=== PATIENT | female | born 1940 | race Caucasian/White ===

== ENCOUNTER 2017-12-31 14:23 | Inpatient (IN) | payer MEDICARE, MEDICAID ==
--- NOTE | 2017-12-31 15:05 | ED Physician Chart ---
ED Chief Complaint/HPI - Patient Information Date Seen:: 12/31/17 Time Seen:: 14:40 Chief Complaint:: possible new onset atrial fibrillation History of Present Illness:: Patient went to Dr. Pappas's office this afternoon for peripheral edema and shortness of breath for 2 weeks. Patient's also had substernal chest pain for last 1 month. Patient cannot describe the quality of the chest pain however. In the doctor's office an EKG was done which showed a run of ventricular tachycardia and atrial fibrillation as read by the print out on the EKG. However there is a lot of baseline artifact. Allergies:: Allergies Allergy/AdvReac Type Severity Reaction Status Date / Time No Known Allergies Allergy Verified 12/31/17 14:39 Vitals:: Vital Signs - 8 hr 12/31/17 14:41 Temp 98.1 F HR 72 RR 22 BP 121/46 O2 Sat % 94 Historian:: Patient, Family Member Review:: Nurse's Note Reviewed ED Review of Systems - Review of Systems General/Constitutional: No fever, No chills, No weight loss, No weakness, No diaphoresis, No edema, No loss of appetite Skin: No skin lesions, No rash, No bruising Head: No headache, No light-headedness Eyes: No loss of vision, No pain, No diplopia ENT: No earache, No nasal drainage, No sore throat, No tinnitus Neck: No neck pain, No swelling, No thyromegaly, No stiffness, No mass noted Cardio Vascular: Chest pain, No palpitations, No PND, No orthopnea, No edema Pulmonary: SOB, No cough, No sputum, No wheezing GI: No nausea, No vomiting, No diarrhea, No pain, No melena, No hematochezia, No constipation, No hematemesis G/U: No dysuria, No frequency, No hematuria Musculoskeletal: No bone or joint pain, No back pain, No muscle pain, Other ( peripheral edema) Endocrine: No polyuria, No polydipsia Psychiatric: No prior psych history, No depression, No anxiety, No suicidal ideation Hematopoietic: No bruising, No lymphadenopathy Allergic/Immuno: No urticaria, No angioedema Neurological: No syncope, No focal symptoms, No weakness, No paresthesia, No headache, No seizure, No dizziness, No confusion, No vertigo ED Past Medical History - Past Medical History Past Medical History: HTN, Asthma/COPD, Thyroid disorder, Other (hypothyroidism ; chronic renal disease) Family History: None Social History: Other (quit smoking 30 years ago) Surgical History: Appendectomy, Hernia Psychiatricy History: None Medication: Reviewed Family Medical History - Family Member Mother History Unknown: Yes Ethnicity: Living Status: ED Physical Exam - Physical Examination General/Constitutional: Awake, Well-developed, well-nourished, Alert, No distress, GCS 15, Non-toxic appearing, Ambulatory Head: Atraumatic Eyes: Lids, conjuctiva normal, PERRL, EOMI Skin: Nl inspection, No rash, No skin lesions, No ecchymosis, Well hydrated, No lymphadenopathy ENMT: External ears, nose nl, Nasal exam nl Other ENMT comments:: Edentulous Neck: Nontender, Full ROM w/o pain, No JVD, No nuchal rigidity, No bruit, No mass, No stridor Respiratory: Nl effort/Exclusion, Clear to Auscultation, No Wheeze/Rhonchi/Rales Cardio Vascular: RRR, No murmur, gallop, rubs, NL S1 S2 GI: No tenderness/rebounding/guarding, No organomegaly, No hernia, Normal BS's, Nondistended, No mass/bruits, No McBurney tenderness : No CVA tenderness Extremities: No tenderness or effusion, Full ROM, normal strength in all extremities, Normal digits & nails Other Extremities comments:: 3 out of 4 pretibial pitting edema Neuro/Psych: Alert/oriented, DTR's symmetric, Normal sensory exam, Normal motor strength, Judgement/insight normal, Mood normal, Normal gait, No focal deficits Misc: Normal back, No paraspinal tenderness ED Labs/Radiology/EKG Results - Radiology Results Results: Cardiomegaly; elevation of right hemidiaphragm; calcification of the aortic arch - EKG Interpretations Rate & Rhythm: normal sinus rhythm rate of 69 [place]: normal ED Septic Shock - . Is Septic Shock (SBP<90, OR Lactate>4 mmol\L) present?: No - <6hrs of presentation: Vital Signs: Vital Signs - 8 hr 12/31/17 14:41 Temp 98.1 F HR 72 RR 22 BP 121/46 O2 Sat % 94
[2017-12-31 15:25] LABS: % BASOPHILS 1.2 % (0.0-2.0); % EOSINOPHILS 10.7 % (0.0-5.0); % LYMPHOCYTES 46.1 % (20.0-50.0); % MONOCYTES 9.8 % (2.0-10.0); % NEUTROPHILS 32.2 % (40.0-80.0); BASOPHILE ABSOLUTE 0.1 Th/cumm (0-0.2); EOSINOPHILE ABSOLUTE 0.8 Th/cmm (0.1-0.4); HEMATOCRIT 31.8 % (41.0-60); HEMOGLOBIN 10.5 gm/dL (12-16); LYMPHOCYTE ABSOLUTE 3.4 Th/cmm (1.5-3.0); MEAN CELL VOLUME 87.6 fl (81-100); MEAN CORPUSCULAR HEMOGLOBIN 28.8 pg (27.0-31.0); MEAN CORPUSCULAR HGB CONC 32.9 pg (28.0-36.0); MEAN PLATELET VOLUME 7.9 fl; MONOCYTE ABSOLUTE 0.7 Th/cmm (0.3-1.0); NEUTROPHILE ABSOLUTE 2.4 Th/cmm (1.8-8.0); PLATELET COUNT 168 Th/cmm (150-400); RED BLOOD COUNT 3.63 Mil/cmm (3.80-5.20); RED CELL DISTRIBUTION WIDTH 14.6 % (11.5-20.0); WHITE BLOOD COUNT 7.4 Th/cmm (4.8-10.8)
[2017-12-31 15:41] LABS: ANION GAP 12.1 (7.0-16.0); BUN - UREA NITROGEN 14 mg/dL (7-25); CALCIUM SERUM 9.5 mg/dL (8.6-10.3); CHLORIDE 103 mEq/L (98-107); GLUCOSE 110 mg/dL (70-105); POTASSIUM SERUM 4.1 mEq/L (3.5-5.1); SODIUM SERUM 135 mEq/L (136-145)
[2017-12-31 18:44] LABS: ALB/GLOB RATIO 0.6 (1.0-1.8); ALBUMIN 3.4 gm/dL (3.7-5.3); ALKALINE PHOSPHATASE 86 U/L (34-104); ANION GAP 13.7 (7.0-16.0); BILIRUBIN,TOTAL 0.5 mg/dL (0.3-1.0); BUN - UREA NITROGEN 14 mg/dL (7-25); CALCIUM SERUM 9.3 mg/dL (8.6-10.3); CARBON DIOXIDE 22.4 mEq/L (21.0-31.0); CHLORIDE 103 mEq/L (98-107); GLUCOSE 109 mg/dL (70-105); POTASSIUM SERUM 4.1 mEq/L (3.5-5.1); SGOT 25 U/L (13-39); SGPT/ALT 9 U/L (7-52); SODIUM SERUM 135 mEq/L (136-145); TOTAL PROTEIN,SERUM 9.1 gm/dL (6.0-8.3)
[2017-12-31 19:48] VITALS: BP 131/62
[2018-01-01] MEDS ORDERED: Pneumococcal Vaccine 0.5 mL Vial IM ONE (03:35)
--- NOTE | 2018-01-01 08:43 | Diagnostic Imaging Report ---
CHEST X-RAY: AP view INDICATION: CHF COMPARISON: 02/08/2015 FINDINGS: Exam is limited due to body habitus and rotation. Mild increased interstitial lung markings are noted. There may be a small right effusion. There is elevation of the right hemidiaphragm limiting assessment of the right lung base. There is prominence of the right paratracheal soft tissues. Cardiomegaly is noted with atherosclerosis. Osseous structures are intact. IMPRESSION: Limited exam due to body habitus and positioning. Mild increased interstitial lung markings are noted which could be chronic, however, a marginal degree of congestion cannot be excluded. Please correlate clinically. Right basal atelectasis versus less likely infiltrate. Small right effusion is suspected. Cardiomegaly and atherosclerotic vascular disease. Prominence of the right paratracheal soft tissues. This may be related to body habitus and prominent vascular structures, however, lymphadenopathy or other mass lesions cannot be excluded. Consider short-term follow-up with CT of the chest, preferably with IV contrast.
[2018-01-01] MEDS: Levothyroxine 0.025 Mg Tab PO SCH (09:45)
--- NOTE | 2018-01-01 10:08 | Consultation ---
DATE OF CONSULTATION: 01/01/[address] De Los Santos. HISTORY AND PHYSICAL: This is a 77-year-old female patient who has been complaining of increasing shortness of breath, swelling in both lower extremities at this time. The patient came to the Emergency Room. In the Emergency Room, the patient was found to have elevated BNP level 2630. Hence, the patient was admitted for congestive heart failure. PAST MEDICAL HISTORY: The patient has a history of hypertension, hypothyroid, anemia, iron deficiency, COPD, osteoporosis. FAMILY HISTORY: Unremarkable. SOCIAL HISTORY: No history of smoking, alcohol abuse at the present time. The patient has been a smoker in the past. ALLERGIES: None. PHYSICAL EXAMINATION: VITAL SIGNS: Blood pressure 130/80, pulse 80, respirations 20. HEAD: Normocephalic. No lumps or bumps. EYES: Pupils equal, reactive to light. Fundi show AV nicking, sclerae white, conjunctivae pink. NECK: Carotid 2+. Normal upstroke. JVD 10 cm above the sternal angle. Thyroid not palpable. Lymph nodes not palpable. CHEST: Shows increased AP diameter. No kyphosis, scoliosis. LUNGS: Bilateral rales. Decreased breath sounds both the bases. HEART: PMI sixth intercostal space with lateral to midclavicular line. S1, S2, S3, S4, soft systolic murmur. ABDOMEN: Soft. Liver and spleen not palpable. No organomegaly. Bowel sounds active. NEUROLOGIC: No focal neurological deficit. EXTREMITIES: Peripheral pulses 2+. 2+ pedal edema. CLINICAL IMPRESSION: Congestive heart failure. Echocardiogram to evaluate left ventricular function, hypertension, hypothyroid, iron deficiency anemia, chronic obstructive pulmonary disease, osteoporosis. PLAN: We will start the patient on diuretics, preload afterload reduction. Get troponin level and also echocardiogram. JOB# [id number]
[2018-01-01] MEDS: Acetaminophen 500 MG TAB PO PRN (11:20)
[2018-01-01] MEDS ORDERED: VTE Chemical Prophylaxis Screen/Admission MC PRN (12:46)
[2018-01-02] MEDS: Acetaminophen 500 MG TAB PO PRN (06:51)
[2018-01-02] MEDS: Levothyroxine 0.025 Mg Tab PO SCH (06:51)
[2018-01-02 07:09] LABS: ANION GAP 10.8 (7.0-16.0); BUN - UREA NITROGEN 11 mg/dL (7-25); CARBON DIOXIDE 25.4 mEq/L (21.0-31.0); CHLORIDE 106 mEq/L (98-107); CREATININE - SERUM 0.8 mg/dL (0.6-1.2); GLUCOSE 91 mg/dL (70-105); POTASSIUM SERUM 4.2 mEq/L (3.5-5.1); SODIUM SERUM 138 mEq/L (136-145)
--- NOTE | 2018-01-02 20:09 | Cardiology ---
01/01/[address] De Los Santos. M-MODE ECHOCARDIOGRAM: Mitral valve, anterior leaflet of mitral valve shows normal excursion, EF velocity. Posterior leaflet of the mitral valve shows normal excursion. There is minimal mitral annulus calcification. Left ventricular posterior wall shows increased thickness, normal excursion. Interventricular septum shows increased thickness, normal excursion, hypertrophy of the left ventricle, ejection fraction 76%. Left atrium normal. Aortic root shows normal dimension, normal excursion of aortic leaflets. CONCLUSION: Hypertrophy of the left ventricle, minimal mitral annulus calcification, ejection fraction 76%. 2D ECHO: Long axis view showed normal sized left ventricle with hypertrophy of the left ventricle. Left atrium normal. Aortic root shows normal dimension, normal excursion of aortic leaflets. Short axis view of mitral valve shows minimal mitral annulus calcification. Short axis view of aortic valve normal. Apical four-chamber view showed normal sized left ventricle with hypertrophy of the left ventricle. Left atrium enlarged. Right ventricular cavity, right atrium normal, no pericardial effusion. CONCLUSION: Hypertrophy of the left ventricle, minimal mitral annulus calcification, ejection fraction 76%. Doppler study shows moderate mitral regurgitation, moderate aortic regurgitation, severe tricuspid regurgitation, right ventricular systolic pressure of 57 mmHg with moderate pulmonary hypertension. [facility]# [id number]
[2018-01-03 06:31] LABS: ANION GAP 8.5 (7.0-16.0); BUN - UREA NITROGEN 9 mg/dL (7-25); CARBON DIOXIDE 33.1 mEq/L (21.0-31.0); CHLORIDE 100 mEq/L (98-107); CREATININE - SERUM 0.8 mg/dL (0.6-1.2); GLUCOSE 84 mg/dL (70-105); POTASSIUM SERUM 3.6 mEq/L (3.5-5.1); SODIUM SERUM 138 mEq/L (136-145)
[2018-01-03] MEDS: Levothyroxine 0.025 Mg Tab PO SCH (09:11)
[2018-01-03] MEDS: Acetaminophen 500 MG TAB PO PRN (10:20)
[2018-01-04] MEDS: Levothyroxine 0.025 Mg Tab PO SCH (06:49)
[2018-01-04 06:53] LABS: ANION GAP 10.3 (7.0-16.0); BUN - UREA NITROGEN 9 mg/dL (7-25); CARBON DIOXIDE 37.5 mEq/L (21.0-31.0); CHLORIDE 93 mEq/L (98-107); CREATININE - SERUM 0.9 mg/dL (0.6-1.2); GLUCOSE 112 mg/dL (70-105); POTASSIUM SERUM 3.8 mEq/L (3.5-5.1); SODIUM SERUM 137 mEq/L (136-145)
[2018-01-04] MEDS: Metolazone 5 MG TAB PO SCH (16:35)
[2018-01-05 05:49] LABS: ANION GAP 9.4 (7.0-16.0); BUN - UREA NITROGEN 14 mg/dL (7-25); CALCIUM SERUM 9.4 mg/dL (8.6-10.3); CHLORIDE 89 mEq/L (98-107); CREATININE - SERUM 0.9 mg/dL (0.6-1.2); GLUCOSE 92 mg/dL (70-105); POTASSIUM SERUM 3.5 mEq/L (3.5-5.1); SODIUM SERUM 138 mEq/L (136-145)
[2018-01-05 06:18] LABS: CARBON DIOXIDE 43.1 mEq/L (21.0-31.0)
[2018-01-05] MEDS: Levothyroxine 0.05 Mg Tab PO SCH (09:04)
[2018-01-05] MEDS: Metolazone 5 MG TAB PO SCH ×2 (09:05→18:07)
[2018-01-05] MEDS ORDERED: Potassium Chloride 10 mEq ER Tab PO ONE (13:00)
[2018-01-06 06:03] LABS: HEMATOCRIT 34.3 % (41.0-60); HEMOGLOBIN 11.5 gm/dL (12-16); MEAN CELL VOLUME 86.6 fl (81-100); MEAN CORPUSCULAR HGB CONC 33.4 pg (28.0-36.0); MEAN PLATELET VOLUME 8.6 fl; PLATELET COUNT 149 Th/cmm (150-400); RED BLOOD COUNT 3.96 Mil/cmm (3.80-5.20); WHITE BLOOD COUNT 7.4 Th/cmm (4.8-10.8)
[2018-01-06 06:27] LABS: BUN - UREA NITROGEN 28 mg/dL (7-25); CALCIUM SERUM 9.7 mg/dL (8.6-10.3); CHLORIDE 86 mEq/L (98-107); CREATININE - SERUM 1.1 mg/dL (0.6-1.2); GLUCOSE 86 mg/dL (70-105); POTASSIUM SERUM 3.4 mEq/L (3.5-5.1); SODIUM SERUM 136 mEq/L (136-145)
[2018-01-06 06:38] LABS: BAND NEUTROPHILE 0 % (0-10); BASOPHIL 1 % (0-3); EOSINOPHIL 17 % (0-5); LYMPHOCYTE 39 % (20-50); MONOCYTE 9 % (2-10); NEUTROPHILS 34 % (40-80)
[2018-01-06] MEDS: Levothyroxine 0.05 Mg Tab PO SCH (06:47)
[2018-01-06 07:02] LABS: CARBON DIOXIDE 43.4 mEq/L (21.0-31.0)
[2018-01-06] MEDS: Metolazone 5 MG TAB PO SCH (08:49)
[2018-01-06] MEDS ORDERED: Potassium Chloride 20 mEq ER Tab PO ONE (13:53)
--- NOTE | 2018-01-06 21:04 | Discharge Summary ---
DATE OF DISCHARGE: 01/06/[address] De Los Santos. HISTORY AND PHYSICAL: This 77-year-old female patient who has been complaining of increasing shortness of breath, swelling in both lower extremities. Following this, the patient was seen in the Emergency Room with congestive heart failure, hence the patient is admitted. The patient's BNP level was 2630. PAST MEDICAL HISTORY: Hypertension, hypothyroid, iron-deficiency anemia, COPD, osteoporosis. FAMILY HISTORY: Unremarkable. SOCIAL HISTORY: No history of smoking, alcohol abuse. ALLERGIES: No known allergies. PHYSICAL EXAMINATION: VITAL SIGNS: Blood pressure 130/77, pulse 78, respirations 28. HEAD: Normocephalic. No lumps or bumps. EYES: Pupils equal, reactive to light. Fundi show AV nicking, sclerae white, conjunctivae pink. NECK: Carotid 2+. Normal upstroke. JVD flat. Thyroid not palpable. Lymph nodes not palpable. CHEST: Shows increased AP diameter. No kyphosis, scoliosis. LUNGS: Bilateral bronchovesicular breath sounds. HEART: PMI fifth intercostal space with lateral to midclavicular line. S1, S2. No S3. Soft S4. ABDOMEN: Soft. Liver, spleen not palpable. No organomegaly. Bowel sounds active. NEUROLOGIC: Unremarkable. EXTREMITIES: Peripheral pulses, pedal edema 2+. CLINICAL IMPRESSION: The patient during hospital stay was given Lasix preload, afterload reduction. The patient's condition improved. The patient had echocardiogram, which showed ejection fraction 76%, hypertrophy of the left ventricle, moderate mitral regurgitation, moderate aortic regurgitation, severe tricuspid regurgitation, right ventricular systolic pressure of 57 mmHg with moderate pulmonary hypertension. The patient's condition has been discussed with daughter at the bedside. The patient will be discharged with home health for physical therapy. DISCHARGE DIAGNOSES: Congestive heart failure, diastolic dysfunction, hypertension, hypothyroid, chronic obstructive pulmonary disease, iron-deficiency anemia, osteoporosis. The patient's medication reconciliation done. The patient to have followup visit with Dr. Silvio Pappas. JOB# [id number]
== END 2018-01-06 16:10 | disposition home health service (06) | DRG 291 ==
LOC: ER 14:23 → TELE 16:49
PROVIDERS: ADMIT Internal Medicine Cardiovascular Disease; ATTEND Internal Medicine Cardiovascular Disease
DX: I13.0 Hypertensive heart and chronic kidney disease with heart failure and stage 1 through stage 4 chronic kidney disease, or unspecified chronic kidney disease (principal); I50.31 Acute diastolic (congestive) heart failure; D50.9 Iron deficiency anemia, unspecified; J44.9 Chronic obstructive pulmonary disease, unspecified; E03.9 Hypothyroidism, unspecified; M81.0 Age-related osteoporosis without current pathological fracture; I27.20 Pulmonary hypertension, unspecified; I08.3 Combined rheumatic disorders of mitral, aortic and tricuspid valves; N18.9 Chronic kidney disease, unspecified; Z87.891 Personal history of nicotine dependence; Z90.49 Acquired absence of other specified parts of digestive tract
CPT/HCPCS: 36415-UA; 71045-TC; 80048-TC; 80053-TC; 83880-TC; 84484-TC; 85007-TC; 85025-TC; 93005; 94760; J1644; J1940; Z7610

== ENCOUNTER 2018-02-19 15:33 | Inpatient (IN) | payer MEDICARE, MEDICAID ==
--- NOTE | 2018-02-19 16:24 | ED Physician Chart ---
ED Chief Complaint/HPI - Patient Information Date Seen:: 02/19/18 Time Seen:: 16:00 Chief Complaint:: abd pain History of Present Illness:: 77 yr old female with nv abd pain since yest hx of multiple abd surgeries and appendectomy hx of hernia surgery no diarhea or major vomiting Allergies:: Allergies Allergy/AdvReac Type Severity Reaction Status Date / Time No Known Allergies Allergy Verified 12/31/17 14:39 Vitals:: Vital Signs - 8 hr 02/19/18 16:03 Temp 98.5 F HR 89 RR 22 BP 182/65 O2 Sat % 94 ED Review of Systems - Review of Systems General/Constitutional: No fever Skin: No skin lesions Head: No headache Eyes: No loss of vision ENT: No earache Neck: No neck pain Cardio Vascular: No chest pain Pulmonary: No SOB GI: No vomiting G/U: No dysuria Musculoskeletal: No bone or joint pain Endocrine: No polyuria Psychiatric: No anxiety Hematopoietic: No bruising Allergic/Immuno: No urticaria Neurological: No syncope ED Past Medical History - Past Medical History Past Medical History: HTN, CHF Surgical History: Appendectomy (hernia surgery) Family Medical History - Family Member Mother History Unknown: Yes Ethnicity: Living Status: ED Physical Exam - Physical Examination General/Constitutional: Well-developed, well-nourished, Alert Head: Atraumatic Eyes: Lids, conjuctiva normal Skin: No rash ENMT: External ears, nose nl Neck: Nontender (occas rales and dyspnea) Respiratory: Nl effort/Exclusion Cardio Vascular: RRR, No murmur, gallop, rubs GI: No organomegaly Other GI comments:: mild distension : No CVA tenderness Extremities: No tenderness or effusion Neuro/Psych: Alert/oriented ED Septic Shock - . Is Septic Shock (SBP<90, OR Lactate>4 mmol\L) present?: No - <6hrs of presentation: Vital Signs: Vital Signs - 8 hr 02/19/18 16:03 Temp 98.5 F HR 89 RR 22 BP 182/65 O2 Sat % 94 ED Reassessment (Disposition) - Diagnosis Diagnosis:: abd pain nv - Patient Disposition Discharge/Transfer:: Acute Care w/in this hosp Condition at Disposition:: Stable
[2018-02-19 16:47] LABS: % BASOPHILS 0.6 % (0.0-2.0); % LYMPHOCYTES 26.4 % (20.0-50.0); % MONOCYTES 8.1 % (2.0-10.0); % NEUTROPHILS 54.9 % (40.0-80.0); EOSINOPHILE ABSOLUTE 0.6 Th/cmm (0.1-0.4); HEMATOCRIT 34.1 % (41.0-60); HEMOGLOBIN 11.4 gm/dL (12-16); LYMPHOCYTE ABSOLUTE 1.6 Th/cmm (1.5-3.0); MEAN CELL VOLUME 86.3 fl (81-100); MEAN CORPUSCULAR HEMOGLOBIN 28.8 pg (27.0-31.0); MEAN CORPUSCULAR HGB CONC 33.3 pg (28.0-36.0); MEAN PLATELET VOLUME 7.8 fl; MONOCYTE ABSOLUTE 0.5 Th/cmm (0.3-1.0); NEUTROPHILE ABSOLUTE 3.3 Th/cmm (1.8-8.0); PLATELET COUNT 176 Th/cmm (150-400); RED BLOOD COUNT 3.95 Mil/cmm (3.80-5.20); RED CELL DISTRIBUTION WIDTH 15.7 % (11.5-20.0)
[2018-02-19 17:02] LABS: ALB/GLOB RATIO 0.6 (1.0-1.8); ALBUMIN 3.2 gm/dL (3.7-5.3); ALKALINE PHOSPHATASE 126 U/L (34-104); ANION GAP 10.4 (7.0-16.0); BILIRUBIN,TOTAL 0.5 mg/dL (0.3-1.0); BUN - UREA NITROGEN 11 mg/dL (7-25); CALCIUM SERUM 9.3 mg/dL (8.6-10.3); CARBON DIOXIDE 25.9 mEq/L (21.0-31.0); CHLORIDE 103 mEq/L (98-107); CREATININE - SERUM 0.7 mg/dL (0.6-1.2); GLUCOSE 114 mg/dL (70-105); POTASSIUM SERUM 3.3 mEq/L (3.5-5.1); SGOT 29 U/L (13-39); SGPT/ALT 12 U/L (7-52); SODIUM SERUM 136 mEq/L (136-145); TOTAL PROTEIN,SERUM 8.8 gm/dL (6.0-8.3)
[2018-02-19 17:23] LABS: URINE SOURCE CLEAN C
[2018-02-19] MEDS ORDERED: Potassium Chloride 20 mEq ER Tab PO ONE ×2 (17:29→17:43)
[2018-02-19 17:34] LABS: URINE BILIRUBIN NEGATIVE (NEGATIVE); URINE BLOOD SMALL (NEGATIVE); URINE GLUCOSE (UA) NEGATIVE (NEGATIVE); URINE KETONE NEGATIVE (NEGATIVE); URINE LEUKOCYTE ESTERASE NEGATIVE (NEGATIVE); URINE MICROSCOPIC INDICATED? YES; URINE NITRATE NEGATIVE (NEGATIVE); URINE PH 6.5 (4.6 - 8.0); URINE PROTEIN 100 mg/dL (NEGATIVE); URINE UROBILINOGEN 0.2 E.U./dL (0.2 - 1.0)
[2018-02-19 17:39] LABS: URINE CLARITY CLEAR (CLEAR); URINE COLOR YELLOW
[2018-02-19 17:44] LABS: URINE BACTERIA 1+ /hpf (NONE SEEN); URINE EPITHELIAL CELLS FEW /lpf (FEW); URINE WBC 0-2 /hpf (0-5)
[2018-02-19] MEDS ORDERED: Morphine Sulfate 2 mg/mL 1mL Syr IVP STA (19:25)
[2018-02-19] MEDS ORDERED: Piperacillin Sodium/Tazobact 3.375 gm Vial IV ONE (19:35)
[2018-02-19] MEDS ORDERED: Morphine Sulfate 2 mg/mL 1mL Syr ONE (19:35)
[2018-02-19 20:49] LABS: AMYLASE SERUM 675 U/L (29-103); LIPASE 2214 U/L (11-82)
[2018-02-19] MEDS ORDERED: Lactated Ringer 1,000 ML IV ONE (21:04)
[2018-02-19] MEDS ORDERED: D5-0.9NS w/KCL 20mEq 1,000 ML IV ONE ×2 (21:09→21:45)
[2018-02-19] MEDS ORDERED: Morphine Sulfate 2 mg/mL 1mL Syr IV PRN (22:14)
[2018-02-19] MEDS ORDERED: D5-0.45NS 1,000 ML IV SCH (22:45)
[2018-02-20 00:19] VITALS: BP 168/69
[2018-02-20] MEDS ORDERED: Piperacillin Sodium/Tazobact 3.375 gm Vial IV ONE (05:15)
[2018-02-20 06:11] LABS: % BASOPHILS 0.5 % (0.0-2.0); % EOSINOPHILS 3.9 % (0.0-5.0); % NEUTROPHILS 59.6 % (40.0-80.0); EOSINOPHILE ABSOLUTE 0.3 Th/cmm (0.1-0.4); HEMATOCRIT 31.6 % (41.0-60); HEMOGLOBIN 10.4 gm/dL (12-16); LYMPHOCYTE ABSOLUTE 2.1 Th/cmm (1.5-3.0); MEAN CELL VOLUME 86.9 fl (81-100); MEAN CORPUSCULAR HEMOGLOBIN 28.5 pg (27.0-31.0); MEAN CORPUSCULAR HGB CONC 32.9 pg (28.0-36.0); MEAN PLATELET VOLUME 8.8 fl; MONOCYTE ABSOLUTE 0.7 Th/cmm (0.3-1.0); NEUTROPHILE ABSOLUTE 4.5 Th/cmm (1.8-8.0); PLATELET COUNT 168 Th/cmm (150-400); RED BLOOD COUNT 3.64 Mil/cmm (3.80-5.20); RED CELL DISTRIBUTION WIDTH 15.9 % (11.5-20.0)
[2018-02-20 06:12] LABS: ALB/GLOB RATIO 0.6 (1.0-1.8); ALBUMIN 2.8 gm/dL (3.7-5.3); ALKALINE PHOSPHATASE 97 U/L (34-104); ANION GAP 10.5 (7.0-16.0); BILIRUBIN,TOTAL 0.6 mg/dL (0.3-1.0); BUN - UREA NITROGEN 13 mg/dL (7-25); CALCIUM SERUM 8.8 mg/dL (8.6-10.3); CARBON DIOXIDE 23.7 mEq/L (21.0-31.0); CHLORIDE 108 mEq/L (98-107); CREATININE - SERUM 0.9 mg/dL (0.6-1.2); GLUCOSE 109 mg/dL (70-105); LIPASE 171 U/L (11-82); POTASSIUM SERUM 4.2 mEq/L (3.5-5.1); SGOT 29 U/L (13-39); SGPT/ALT 12 U/L (7-52); SODIUM SERUM 138 mEq/L (136-145); TOTAL PROTEIN,SERUM 7.7 gm/dL (6.0-8.3)
[2018-02-20 06:13] LABS: WHITE BLOOD COUNT 7.6 Th/cmm (4.8-10.8)
[2018-02-20 07:01] LABS: INR 1.33 (0.5-1.4); PROTHROMBIN TIME (TEST) 13.6 SECONDS (9.5-11.5)
[2018-02-20] MEDS ORDERED: D5-0.25NS 1,000 ML IV SCH (08:30)
--- NOTE | 2018-02-20 09:23 | Consultation ---
DATE OF CONSULTATION: 02/20/2018 INPATIENT GASTROINTESTINAL CONSULTATION CONSULTING PHYSICIAN: Dr. Mejia. REASON FOR CONSULTATION: Suspected cholecystitis and pancreatitis. HISTORY OF PRESENT ILLNESS: The patient is a 77-year-old female with past medical history significant for obesity, hyperlipidemia, history of multiple abdominal surgeries for hernia repair, who came into the hospital because of acute onset abdominal pain, nausea and vomiting. The patient reports that her abdominal pain is in the epigastric region and began yesterday. She also had several episodes of vomiting at home, although she denies any hematemesis or coffee-ground emesis and she denies any hematochezia as well. Given the severity of her pain, she has had to seek care in the Emergency Room. A CT scan there does show preliminarily possible pancreatitis, distended gallbladder, possible cirrhosis and a thickened gallbladder wall on ultrasound. Labs there showed lipase level elevated above 2000, although her LFTs have been normal. Thus, the patient has been admitted for further care of presumed pancreatitis and possible cholecystitis. PAST MEDICAL HISTORY: History of appendicitis, hernia repair, hyperlipidemia, obesity. PAST SURGICAL HISTORY: Hernia repairs in the past, appendectomy, multiple abdominal surgeries, as per the patient, although she cannot remember which. FAMILY HISTORY: Noncontributory. SOCIAL HISTORY: The patient does not smoke, drink or use illicit drugs. ALLERGIES: No known drug allergies. REVIEW OF SYSTEMS: A 12-point review of systems was performed with the patient and is negative other than the pertinent positives mentioned in history of present illness. CURRENT MEDICATIONS: Include hydralazine, morphine as needed, Zofran as needed, Protonix daily dosing, Zosyn. PHYSICAL EXAMINATION: VITAL SIGNS: Blood pressure is 104/64, pulse 71 beats per minute, temperature 98.3, oxygenation 93%. GENERAL: The patient is lying flat in bed, alert and oriented x 3, no apparent distress. HEAD, EYES, EARS, NOSE AND THROAT: Normocephalic, atraumatic appearing head. Pupils equal and reactive to light. Extraocular muscles are intact. Dry mucous membranes are noted. NECK: Supple. No JVD or thyromegaly. CHEST: There are reduced breath sounds at the bases. CARDIOVASCULAR: S1, S2 present. Regular rate and rhythm. ABDOMEN: Obese, soft. There is minimal tenderness to palpation at this time. No guarding or rebound. No fluid distention. EXTREMITIES: Nonpitting edema is noted bilaterally. Pulses are not present. SKIN: There is no obvious jaundice. LABORATORY DATA: White blood cell count is 6.0, hemoglobin is 10.4, platelet count 168. INR is 1.3. Sodium 138, BUN 13, creatinine 0.9, total bilirubin 0.6, AST 29, ALT 12. Lipase on admission was 2214, today it is 171. IMAGING: Preliminary CT shows possible cirrhosis, distended gallbladder, pancreatitis changes. Ultrasound shows a thickened gallbladder wall. IMPRESSION: This is a 77-year-old female who presents to the hospital with one day of abdominal pain, nausea and vomiting and found to have elevated lipase and possible pancreatitis versus cholecystitis on CT imaging. 1. Abdominal pain. 2. Nausea, vomiting. 3. Possible pancreatitis versus cholecystitis. 4. Possible cirrhosis. DISCUSSION: At this point, the patient will meet criteria for acute pancreatitis given her elevated lipase level, classic pain syndrome and imaging findings with pancreatic edema; however, we will need to await the final read of the CT scan. The preliminary read was not certain. In the meantime, she does feel better with conservative therapy including IV fluids, although she has been under having 75 mL an hour. A HIDA scan has been ordered to look for any evidence of cystic duct obstruction given the thickened gallbladder wall on this CT scan and ultrasound. RECOMMENDATIONS: 1. We will increase the IV fluids to 125 mL an hour to treat the pancreatitis. 2. She can be put on clear liquids after the HIDA scan. 3. Follow up HIDA scan results to see if there is any cystic duct obstruction, which may be causing cholecystitis. 4. She may benefit from having her gallbladder removed, especially if this is a gallstone pancreatitis, which seems rather likely at this point. 5. Continue other supportive measures. 6. We will follow up the final read of the CT and ultrasound. Thank you for allowing me to participate in her care. Please call with any further questions. JOB# [id number]
--- NOTE | 2018-02-20 09:28 | Diagnostic Imaging Report ---
Exam: CT examination abdomen pelvis. HISTORY: Right upper quadrant pain vomiting. Total DLP equals 520 CTDI equals 11.480 Findings: Multiple views of the section of the abdomen pelvis obtained from lower thorax to pubic symphysis without the administration of the intravenous or oral contrast material. No prior studies available comparison. The study demonstrates normal aeration of lung parenchyma the bases. There is evidence for left dilated appearance of the liver is cirrhotic changes cannot be excluded. There is evidence of splenomegaly. The gallbladder is distended. The visualized pancreas demonstrates induration pancreatitis cannot be excluded. The kidneys demonstrate no evidence of obstructive uropathy or nephrolithiasis. No free fluid is noted. Large amount of fecal content is noted in the rectosigmoid junction and rectum suggestive of fecal impaction. Urinary bladder is intact. The uterus calcified. There is evidence of diverticular disease no evidence of IMPRESSION: Hepatosplenomegaly, irregular the lobulated appearance of liver, cirrhotic changes cannot be excluded. Gallbladder distention with thickening gallbladder wall cholecystitis cannot be excluded. Inhomogeneous edema pancreas, question of pancreatitis. Diverticular disease no evidence for diverticulitis. Fecal impaction rectosigmoid junction rectum.
--- NOTE | 2018-02-20 09:31 | Diagnostic Imaging Report ---
ABDOMEN - TWO VIEWS HISTORY: Abdominal pain. Findings: The gas pattern is unremarkable. No organomegaly is noted. No abnormal intra-abdominal calcifications are demonstrated. The visualized bony structures reveal no significant abnormality. Large amount of fecal content is noted. CONCLUSION: 1. Large amount of fecal content.
--- NOTE | 2018-02-20 09:32 | Diagnostic Imaging Report ---
Chest x-ray single view History: Shortness of breath Comparison: 12/31/2017 The heart size is enlarged, no focal pulmonary parenchymal processes. No hilar or mediastinal abnormalities. Impression: No acute abnormalities
--- NOTE | 2018-02-20 10:37 | Diagnostic Imaging Report ---
Exam: Ultrasonographic examination of the gallbladder HISTORY: Distended gallbladder Findings: Limited examination of gallbladder performed multiple planes utilizing real-time technique demonstrates no evidence of cholelithiasis. The gallbladder wall is normal. The common bile duct measures 2.4 mm. There is no evidence of pericholecystic fluid collection IMPRESSION: Distended gallbladder no evidence for cholelithiasis.
--- NOTE | 2018-02-20 12:52 | General Progress Note ---
Objective - Results Result Diagrams: 02/20/18 05:10 02/20/18 05:10 Recent Labs: Laboratory Last Values WBC 7.6 Th/cmm (4.8-10.8) D 02/20/18 05:10 RBC 3.64 Mil/cmm (3.80-5.20) L 02/20/18 05:10 Hgb 10.4 gm/dL (12-16) L 02/20/18 05:10 Hct 31.6 % (41.0-60) L 02/20/18 05:10 MCV 86.9 fl (81-100) 02/20/18 05:10 MCH 28.5 pg (27.0-31.0) 02/20/18 05:10 MCHC Differential 32.9 pg (28.0-36.0) 02/20/18 05:10 RDW 15.9 % (11.5-20.0) 02/20/18 05:10 Plt Count 168 Th/cmm (150-400) 02/20/18 05:10 MPV 8.8 fl 02/20/18 05:10 Neutrophils % 59.6 % (40.0-80.0) 02/20/18 05:10 Lymphocytes % 27.0 % (20.0-50.0) 02/20/18 05:10 Monocytes % 9.0 % (2.0-10.0) 02/20/18 05:10 Eosinophils % 3.9 % (0.0-5.0) 02/20/18 05:10 Basophils % 0.5 % (0.0-2.0) 02/20/18 05:10 PT 13.6 SECONDS (9.5-11.5) H 02/20/18 05:10 INR 1.33 (0.5-1.4) 02/20/18 05:10 Sodium 138 mEq/L (136-145) 02/20/18 05:10 Potassium 4.2 mEq/L (3.5-5.1) 02/20/18 05:10 Chloride 108 mEq/L (98-107) H 02/20/18 05:10 Carbon Dioxide 23.7 mEq/L (21.0-31.0) 02/20/18 05:10 Anion Gap 10.5 (7.0-16.0) 02/20/18 05:10 BUN 13 mg/dL (7-25) 02/20/18 05:10 Creatinine 0.9 mg/dL (0.6-1.2) 02/20/18 05:10 Est GFR ( Amer) TNP 02/20/18 05:10 Est GFR (Non-Af Amer) TNP 02/20/18 05:10 BUN/Creatinine Ratio 14.4 02/20/18 05:10 Glucose 109 mg/dL (70-105) H 02/20/18 05:10 Calcium 8.8 mg/dL (8.6-10.3) 02/20/18 05:10 Magnesium 2.0 mg/dL (1.9-2.7) 02/20/18 05:10 Total Bilirubin 0.6 mg/dL (0.3-1.0) 02/20/18 05:10 AST 29 U/L (13-39) 02/20/18 05:10 ALT 12 U/L (7-52) 02/20/18 05:10 Alkaline Phosphatase 97 U/L (34-104) 02/20/18 05:10 Total Protein 7.7 gm/dL (6.0-8.3) 02/20/18 05:10 Albumin 2.8 gm/dL (3.7-5.3) L 02/20/18 05:10 Globulin 4.9 gm/dL 02/20/18 05:10 Albumin/Globulin Ratio 0.6 (1.0-1.8) L 02/20/18 05:10 Amylase 675 U/L (29-103) H 02/19/18 16:41 Lipase 171 U/L (11-82) H 02/20/18 05:10 Urine Source CLEAN C 02/19/18 16:08 Urine Color YELLOW 02/19/18 16:08 Urine Clarity CLEAR (CLEAR) 02/19/18 16:08 Urine pH 6.5 (4.6 - 8.0) 02/19/18 16:08 Ur Specific [place] 1.020 (1.005-1.030) 02/19/18 16:08 Urine Protein 100 mg/dL (NEGATIVE) H 02/19/18 16:08 Urine Glucose (UA) NEGATIVE mg/dL (NEGATIVE) 02/19/18 16:08 Urine Ketones NEGATIVE mg/dL (NEGATIVE) 02/19/18 16:08 Urine Blood SMALL (NEGATIVE) H 02/19/18 16:08 Urine Nitrate NEGATIVE (NEGATIVE) 02/19/18 16:08 Urine Bilirubin NEGATIVE (NEGATIVE) 02/19/18 16:08 Urine Urobilinogen 0.2 E.U./dL (0.2 - 1.0) 02/19/18 16:08 Ur Leukocyte Esterase NEGATIVE (NEGATIVE) 02/19/18 16:08 Urine RBC 2-5 /hpf (0-5) 02/19/18 16:08 Urine WBC 0-2 /hpf (0-5) 02/19/18 16:08 Ur Epithelial Cells FEW /lpf (FEW) 02/19/18 16:08 Urine Bacteria 1+ /hpf (NONE SEEN) H 02/19/18 16:08 - Physical Exam Vitals and I&O: Vital Signs Temp 97.8 F 02/20/18 09:00 Pulse 72 02/20/18 09:00 Resp 18 02/20/18 09:00 BP 100/55 02/20/18 09:00 Pulse Ox 94 02/20/18 09:00 Intake & Output 02/19/18 02/20/18 02/20/18 18:59 06:59 18:59 Intake Total 50 Balance 50 Weight (lbs) 73.028 kg 70.874 kg Intake: Intake, IV Amount 50 Piperacillin Sodium/ 50 Tazobact 3.375 gm In Sodium Chloride 0.9% 50 ml @ 100 mls/hr IV Q8HR [facility] Rx#:[id number] Other: # Voids 2 # Bowel Movements 0 Weight Source Patient stated Bedscale Active Medications: Current Medications Hydralazine HCl (Apresoline 20 Mg/Ml) 20 mg IV Q4HR PRN PRN Reason: IN SBP >160 Stop: 04/20/18 22:17 Last Admin: 02/19/18 23:42 Dose: 20 mg Piperacillin Sod/Tazobactam (Sod 3.375 gm/ Sodium Chloride) 50 mls @ 100 mls/ hr IV Q8HR [facility] Stop: 04/21/18 04:59 Last Admin: 02/20/18 05:27 Dose: 100 mls/hr Dextrose/Sodium Chloride (D5-0.45ns) 1,000 mls @ 125 mls/hr IV .Q8H [facility] Stop: 04/21/18 08:56 Metronidazole (Flagyl) 500 mg in 100 mls @ 100 mls/hr IV Q8HR [facility] Stop: 04/21/18 12:59 Morphine Sulfate (Morphine) 1 mg IV NOW PRN PRN Reason: Pain (Moderate) Stop: 04/20/18 22:13 Ondansetron HCl (Zofran) 4 mg IV Q4HR PRN PRN Reason: Nausea / Vomiting Stop: 04/20/18 22:11 Pantoprazole Sodium (Protonix) 40 mg IVP DAILY [facility] Stop: 04/21/18 08:59 Last Admin: 02/20/18 08:38 Dose: 40 mg - Procedures Procedures: Procedures Procedure Code Date APPLICATION OF SPLINT 93.54 12/21/10 APPLY LONG ARM SPLINT 61875 12/21/10 DIPHTHERIA TOXOID ADMIN 99.36 12/21/10 EMERGENCY DEPT VISIT 31691 07/22/11 IMMUNIZATION ADMIN 69666 12/21/10 LAP COLECTOMY PART W/ILEUM 72219 02/22/13 LAP VENT/ABD SOPHIE PROC COMP 96414 02/22/13 LAPAROSCOP APPENDECTOMY 47.01 02/22/13 LAPAROSCOPIC CECECTOMY 17.32 02/22/13 LAPAROSCOPY APPENDECTOMY 18659 02/22/13 OTHER LAPAROSCOPIC UMBILICAL HERNIORRHAPHY 53.43 02/22/13 TD VACCINE > 7 IM 01149 12/21/10 TETANUS TOXOID ADMINIST 99.38 12/21/10 Assessment/Plan - Problem List Patient Problems: All Active Problems NAUSEA AND VOMITING WITH ABDOMINAL PAIN (Acute)
[2018-02-20 13:07] LABS: CHOLESTEROL 113 mg/dL (<200); HDL -HIGH DENSITY LIPOPROTEIN 35 mg/dL (23-92); LIPASE 60 U/L (11-82); TRIGLYCERIDES 71 mg/dL (<150)
[2018-02-20] MEDS: metroNIDAZOLE 500mg/NS 100mL 500 MG/100 ML BAG IV SCH ×2 (13:46→21:32)
--- NOTE | 2018-02-20 14:07 | Consultation ---
DATE OF CONSULTATION: 02/20/2018 SURGICAL CONSULTATION REFERRING PHYSICIAN: Dr. Mejia. REASON FOR CONSULTATION: Abdominal pain. Thank you for referring this patient to me. HISTORY OF PRESENT ILLNESS: This is a 77-year-old female who per information from the granddaughter at bedside has been having recurrent abdominal pain in the epigastric area for several years. The patient apparently does not drink. She came in because of severe pain, nausea and vomiting and a CT scan shows hepatomegaly, pancreatitis and a distended gallbladder. The gallbladder ultrasound; however, does not show any stones. PAST MEDICAL HISTORY: Includes appendicitis, a hernia repair in the umbilicus, hyperlipidemia and obesity. She is not a diabetic. LABORATORY STUDIES: On admission, the CBC was essentially normal. The blood sugar is slightly high at 114, alkaline phosphatase 126, but ALT, AST and bilirubin were normal. The amylase was elevated to 675 and lipase at 2214. PHYSICAL EXAMINATION: Now shows scar from previous surgery and there is slight tenderness in the right upper quadrant. PLAN: Per order by Dr. Quinten SALGUERO scan will be done. We will also order a lipid panel to check on level of triglycerides, etc. JOB# [id number]
[2018-02-20] MEDS: D5-0.45NS 1,000 ML IV SCH ×2 (15:47→16:38)
--- NOTE | 2018-02-20 18:13 | History & Physical Pre-OP ---
DATE OF SERVICE: CHIEF COMPLAINT: Abdominal pain. HISTORY OF PRESENT ILLNESS: This is a 77-year-old lady with a history of hyperlipidemia, atrial fibrillation, obesity, who presented to the ER with a 1-day history of abdominal pain and multiple episodes of nausea and vomiting. She denies any hematemesis, diarrhea or constipation. She denies any similar previous episodes in the past. Pertinent findings include a lipase level of over 2000 and initially a pelvic abdominal CT, which showed hepatomegaly and distention of the gallbladder with thickening wall. She also had gallbladder ultrasound showing distended gallbladder with no evidence of cholelithiasis. The patient has been admitted to the telemetry sky for further management and care. PAST MEDICAL HISTORY: History of hypertension, atrial fibrillation, hypothyroidism, asthma/COPD. PAST SURGICAL HISTORY: History of appendectomy, hernia repairs. FAMILY HISTORY: Noncontributory. SOCIAL HISTORY: Denies any tobacco, ETOH or illicit drug usage. ALLERGIES: NKDA. OUTPATIENT MEDICATIONS: Albuterol MDI 90 mcg p.r.n.; amlodipine 5 every day; Eliquis 5 mg every day; ergocalciferol 50,000 units q.weekly; levothyroxine 50 mcg daily; loratadine 10 every day; metoprolol 50 b.i.d.; and nitrofurantoin 100 b.i.d. REVIEW OF SYSTEMS: CONSTITUTIONAL: Feeling somewhat weak at this time, but overall denies any fever, chills or any generalized weakness prior to her becoming ill. CARDIAC: She denies any palpitations, any chest pain. PULMONARY: Denies any cough, shortness of breath or phlegm production. GASTROINTESTINAL: Please refer to the HPI. GENITOURINARY: No bladder habit changes reported. NEUROLOGIC: No changes in vision, no headaches, no syncope. PHYSICAL EXAMINATION: VITAL SIGNS: Temperature 97.8, pulse 72, blood pressure 109/55 with respiratory rate of 18, satting 94-97% on 2 liters. GENERAL: Well-developed, mildly obese female, not in acute distress. HEAD AND NECK: Normocephalic, atraumatic. Pupils are reactive to light. Extraocular movements are intact. Oropharynx moist and clear. CARDIOVASCULAR: Irregularly irregular rhythm with distant sounds. LUNGS: Diminished at the bases, but overall clear to auscultation bilaterally. ABDOMEN: Soft, supple with mild tenderness to palpation on the epigastric area, but no rebound or peritoneal signs. Currently, has hypoactive bowel sounds. EXTREMITIES: On lower extremity, there is no pedal edema. NEUROLOGIC: Grossly intact, nonfocal. Cranial nerves 2-12 within normal limits. LABORATORY DATA: CBC showed an H and H of 11/34, otherwise within normal limits. INR 1.33, potassium 3.3, glucose 114, otherwise Chem-7 was within normal limits. Mag 2.0, AST 29, ALT 12, alkaline phosphatase 126, albumin 3.2, amylase 675, lipase 2214. UA shows positive for protein, small blood, otherwise negative. DIAGNOSTICS: Please refer to the HPI. IMPRESSION: 1. Abdominal pain secondary to pancreatitis. 2. Pancreatitis likely secondary to cholecystitis. 3. Cholecystitis with no clear evidence of gallstones. 4. History of atrial fibrillation. 5. History of essential hypertension. 6. History of asthma/chronic obstructive pulmonary disease -- stable. PLAN: The patient has been admitted to the telemetry sky where she has been placed on IV fluids and supportive care including morphine as needed. She also is on Zofran p.r.n. for the time being. Her home meds have been withheld for now. The patient has been placed on empiric IV antibiotics (Zosyn) and she will undergo a HIDA scan. Her labs will be monitored on a daily basis including lipase level and given her current findings, a GI eval has also been asked for. JOB# [id number] ROMAN
[2018-02-20] MEDS ORDERED: Albuterol Nebulizer 2.5mg/3mL HHN PRN (23:12)
--- NOTE | 2018-02-20 23:54 | Consultation ---
DATE OF CONSULTATION: 02/20/2018 HISTORY OF PRESENT ILLNESS: This 77-year-old female was seen and examined at the courtesy of Dr. Mejia. The patient was admitted to the Emergency Room. She was brought to the Emergency Room with history of abdominal pain. The patient also has a history of paroxysmal atrial fibrillation, has been on Eliquis as an outpatient and metoprolol. She was evaluated in the Emergency Room and was found to have acute pancreatitis with elevated lipase and amylase and distended gallbladder. A CAT scan showing liver consistent with cirrhosis of liver. The patient also found to have anemia and hypokalemia. The patient denies any history of chest pains. No shortness of breath, no history of PND, no history of orthopnea, no history of cough, no history of fever, no history of hemoptysis, no history of dizziness, no history of syncope, no history of seizures, no history of hematemesis, no history of melena, no history of bleeding per rectum, no history of hematuria, no history of swelling over the legs. PHYSICAL EXAMINATION: VITAL SIGNS: Heart rate was 76, blood pressure was 150/70. SKIN: Normal. HEAD: Normocephalic. EYES: Conjunctivae were pink. There is no icterus in the eyes. Pupils reactive to light. NECK: There was no increased jugular venous distention, no thyromegaly, no lymphadenopathy. Carotids equal on both sides. CHEST: Bilaterally symmetrical, moved well with respiration. Respiratory movements equal on both sides. Trachea is central. There is note to percussion. Breath sounds, no rales, no rhonchi. CARDIOVASCULAR SYSTEM: PMI not well localized. There is no pulsation or thrill. No parasternal heave. S1 normal, S2 physiologic. There was no S3, no rub. ABDOMEN: Soft, no tenderness, no rigidity, no guarding, no organomegaly. Abdomen seems to distended. Bowel sounds are present. EXTREMITIES: No calf tenderness. Peripheral pulses diminished. LABORATORY DATA: EKG showed sinus rhythm. CAT scan showed hepatosplenomegaly, irregular lobulated appearance of the liver, cirrhotic changes cannot be excluded. On reviewing the labs, cholesterol was 113, triglycerides 71, HDL 35, LDL 67. WBC was 7.6, hemoglobin 10.4, hematocrit 31.6, platelets 168. Sodium 138, potassium 4.2, chloride 108, CO2 of 23.7, glucose 109, BUN 13, creatinine 0.9, albumin 2.8, magnesium 2. Liver function test was normal. INR was 1.33. Yesterday's electrolytes revealed potassium of 3.3, lipase was 2214, amylase was 675. Abdominal ultrasound showed distended gallbladder. Abdominal x-ray showed large amount of fecal content. Chest x-ray showed little cardiomegaly, no other acute findings. IMPRESSION: History of paroxysmal atrial fibrillation, abdominal pain, acute pancreatitis, distended gallbladder, CAT scan showing cirrhosis of liver, anemia, hypokalemia. PLAN: We will get a repeat EKG. Get echocardiogram to evaluate left ventricular function and valvular structure. Thyroid profile. The patient's home medications included Eliquis and metoprolol, suggest to continue them. Keep a close watch on BMP, CBC and follow amylase and lipase. Consider GI evaluation. Further recommendation will be made depending on the rest of tests available. JOB# [id number]
[2018-02-21] MEDS: D5-0.45NS 1,000 ML IV SCH ×5 (00:41→16:00)
[2018-02-21] MEDS: metroNIDAZOLE 500mg/NS 100mL 500 MG/100 ML BAG IV SCH ×3 (05:04→20:30)
[2018-02-21 05:43] LABS: HEMATOCRIT 33.5 % (41.0-60); MEAN CELL VOLUME 88.7 fl (81-100); MEAN CORPUSCULAR HEMOGLOBIN 29.2 pg (27.0-31.0); MEAN CORPUSCULAR HGB CONC 32.9 pg (28.0-36.0); MEAN PLATELET VOLUME 8.3 fl; PLATELET COUNT 161 Th/cmm (150-400); RED BLOOD COUNT 3.78 Mil/cmm (3.80-5.20); RED CELL DISTRIBUTION WIDTH 16.6 % (11.5-20.0)
[2018-02-21 05:56] LABS: WHITE BLOOD COUNT 5.7 Th/cmm (4.8-10.8)
[2018-02-21 06:22] LABS: ALB/GLOB RATIO 0.6 (1.0-1.8); ALBUMIN 2.9 gm/dL (3.7-5.3); ALKALINE PHOSPHATASE 86 U/L (34-104); ANION GAP 9.5 (7.0-16.0); BILIRUBIN,TOTAL 0.8 mg/dL (0.3-1.0); BUN - UREA NITROGEN 11 mg/dL (7-25); CALCIUM SERUM 8.9 mg/dL (8.6-10.3); CARBON DIOXIDE 25.2 mEq/L (21.0-31.0); CHLORIDE 108 mEq/L (98-107); CREATININE - SERUM 0.9 mg/dL (0.6-1.2); GLUCOSE 101 mg/dL (70-105); MAGNESIUM 2.2 mg/dL (1.9-2.7); POTASSIUM SERUM 3.7 mEq/L (3.5-5.1); SGOT 27 U/L (13-39); SGPT/ALT 10 U/L (7-52); SODIUM SERUM 139 mEq/L (136-145); TOTAL PROTEIN,SERUM 8.1 gm/dL (6.0-8.3)
[2018-02-21] MEDS: Levothyroxine 0.05 Mg Tab PO SCH (06:38)
--- NOTE | 2018-02-21 07:43 | GI Progress Note ---
Subjective - Review of Systems Service Date: 02/21/18 Subjective: No abd pain today, no vomiting Objective - Results Result Diagrams: 02/21/18 05:10 02/21/18 05:10 Recent Labs: Laboratory Last Values WBC 5.7 Th/cmm (4.8-10.8) D 02/21/18 05:10 RBC 3.78 Mil/cmm (3.80-5.20) L 02/21/18 05:10 Hgb 11.0 gm/dL (12-16) L 02/21/18 05:10 Hct 33.5 % (41.0-60) L 02/21/18 05:10 MCV 88.7 fl (81-100) 02/21/18 05:10 MCH 29.2 pg (27.0-31.0) 02/21/18 05:10 MCHC Differential 32.9 pg (28.0-36.0) 02/21/18 05:10 RDW 16.6 % (11.5-20.0) 02/21/18 05:10 Plt Count 161 Th/cmm (150-400) 02/21/18 05:10 MPV 8.3 fl 02/21/18 05:10 Add Manual Diff YES 02/21/18 05:10 Neutrophils % 59.6 % (40.0-80.0) 02/20/18 05:10 Lymphocytes % 27.0 % (20.0-50.0) 02/20/18 05:10 Monocytes % 9.0 % (2.0-10.0) 02/20/18 05:10 Eosinophils % 3.9 % (0.0-5.0) 02/20/18 05:10 Basophils % 0.5 % (0.0-2.0) 02/20/18 05:10 PT 13.6 SECONDS (9.5-11.5) H 02/20/18 05:10 INR 1.33 (0.5-1.4) 02/20/18 05:10 Sodium 139 mEq/L (136-145) 02/21/18 05:10 Potassium 3.7 mEq/L (3.5-5.1) 02/21/18 05:10 Chloride 108 mEq/L (98-107) H 02/21/18 05:10 Carbon Dioxide 25.2 mEq/L (21.0-31.0) 02/21/18 05:10 Anion Gap 9.5 (7.0-16.0) 02/21/18 05:10 BUN 11 mg/dL (7-25) 02/21/18 05:10 Creatinine 0.9 mg/dL (0.6-1.2) 02/21/18 05:10 Est GFR ( Amer) TNP 02/21/18 05:10 Est GFR (Non-Af Amer) TNP 02/21/18 05:10 BUN/Creatinine Ratio 12.2 02/21/18 05:10 Glucose 101 mg/dL (70-105) 02/21/18 05:10 Calcium 8.9 mg/dL (8.6-10.3) 02/21/18 05:10 Magnesium 2.2 mg/dL (1.9-2.7) 02/21/18 05:10 Total Bilirubin 0.8 mg/dL (0.3-1.0) 02/21/18 05:10 AST 27 U/L (13-39) 02/21/18 05:10 ALT 10 U/L (7-52) 02/21/18 05:10 Alkaline Phosphatase 86 U/L (34-104) 02/21/18 05:10 Total Protein 8.1 gm/dL (6.0-8.3) 02/21/18 05:10 Albumin 2.9 gm/dL (3.7-5.3) L 02/21/18 05:10 Globulin 5.2 gm/dL 02/21/18 05:10 Albumin/Globulin Ratio 0.6 (1.0-1.8) L 02/21/18 05:10 Triglycerides 71 mg/dL (<150) 02/20/18 12:44 Cholesterol 113 mg/dL (<200) 02/20/18 12:44 LDL Cholesterol Direct 67 mg/dL (75-193) L 02/20/18 12:44 HDL Cholesterol 35 mg/dL (23-92) 02/20/18 12:44 Amylase 675 U/L (29-103) H 02/19/18 16:41 Lipase 60 U/L (11-82) 02/20/18 12:44 Urine Source CLEAN C 02/19/18 16:08 Urine Color YELLOW 02/19/18 16:08 Urine Clarity CLEAR (CLEAR) 02/19/18 16:08 Urine pH 6.5 (4.6 - 8.0) 02/19/18 16:08 Ur Specific [place] 1.020 (1.005-1.030) 02/19/18 16:08 Urine Protein 100 mg/dL (NEGATIVE) H 02/19/18 16:08 Urine Glucose (UA) NEGATIVE mg/dL (NEGATIVE) 02/19/18 16:08 Urine Ketones NEGATIVE mg/dL (NEGATIVE) 02/19/18 16:08 Urine Blood SMALL (NEGATIVE) H 02/19/18 16:08 Urine Nitrate NEGATIVE (NEGATIVE) 02/19/18 16:08 Urine Bilirubin NEGATIVE (NEGATIVE) 02/19/18 16:08 Urine Urobilinogen 0.2 E.U./dL (0.2 - 1.0) 02/19/18 16:08 Ur Leukocyte Esterase NEGATIVE (NEGATIVE) 02/19/18 16:08 Urine RBC 2-5 /hpf (0-5) 02/19/18 16:08 Urine WBC 0-2 /hpf (0-5) 02/19/18 16:08 Ur Epithelial Cells FEW /lpf (FEW) 02/19/18 16:08 Urine Bacteria 1+ /hpf (NONE SEEN) H 02/19/18 16:08 - Physical Exam Vitals and I&O: Vital Signs Temp 97.0 F 02/21/18 05:00 Pulse 60 02/21/18 06:40 Resp 18 02/21/18 06:40 BP 122/60 02/21/18 05:00 Pulse Ox 98 02/21/18 06:40 Intake & Output 02/20/18 02/21/18 02/21/18 18:59 06:59 18:59 Intake Total 350 1225 Balance 350 1225 Weight (lbs) 70.76 kg 70.76 kg Intake: Intake, IV Amount 150 1150 D5-0.45NS 1,000 ml @ 125 1000 mls/hr IV .Q8H [facility] Rx#: [id number] Piperacillin Sodium/ 50 50 Tazobact 3.375 gm In Sodium Chloride 0.9% 50 ml @ 100 mls/hr IV Q8HR [facility] Rx#:[id number] metroNIDAZOLE 500mg/NS 100 100 100mL 500 mg In 100 ml @ 100 mls/hr IV Q8HR [facility] Rx #:[id number] Oral 200 75 Other: # Voids 5 # Bowel Movements 1 Weight Source Bedscale Bedscale Active Medications: Current Medications Albuterol Sulfate (Albuterol 2.5mg/3ml Neb Ud) 2.5 mg HHN Q6H PRN PRN Reason: Shortness of Breath Stop: 04/21/18 23:11 Hydralazine HCl (Apresoline 20 Mg/Ml) 20 mg IV Q4HR PRN PRN Reason: IN SBP >160 Stop: 04/20/18 22:17 Last Admin: 02/19/18 23:42 Dose: 20 mg Piperacillin Sod/Tazobactam (Sod 3.375 gm/ Sodium Chloride) 50 mls @ 100 mls/ hr IV Q8HR [facility] Stop: 04/21/18 04:59 Last Admin: 02/21/18 04:58 Dose: 100 mls/hr Dextrose/Sodium Chloride (D5-0.45ns) 1,000 mls @ 125 mls/hr IV .Q8H [facility] Stop: 04/21/18 08:56 Last Admin: 02/21/18 01:16 Dose: 125 mls/hr Metronidazole (Flagyl) 500 mg in 100 mls @ 100 mls/hr IV Q8HR [facility] Stop: 04/21/18 12:59 Last Admin: 02/21/18 05:04 Dose: 100 mls/hr Levothyroxine Sodium (Synthroid) 0.05 mg PO QDAC [facility] Stop: 04/22/18 07:29 Last Admin: 02/21/18 06:38 Dose: 0.05 mg Metoprolol Tartrate (Lopressor) 50 mg PO BID [facility] Stop: 04/22/18 08:59 Miscellaneous (Pharmacy To Dose) 1 ea MC PRN [facility] Stop: 04/21/18 23:29 Morphine Sulfate (Morphine) 1 mg IV NOW PRN PRN Reason: Pain (Moderate) Stop: 04/20/18 22:13 Ondansetron HCl (Zofran) 4 mg IV Q4HR PRN PRN Reason: Nausea / Vomiting Stop: 04/20/18 22:11 Pantoprazole Sodium (Protonix) 40 mg IVP DAILY [facility] Stop: 04/21/18 08:59 Last Admin: 02/20/18 08:38 Dose: 40 mg Rivaroxaban (Xarelto) 15 mg PO DAILY@1700 [facility] Stop: 04/22/18 01:29 Last Admin: 02/21/18 01:09 Dose: 15 mg General: Alert, Oriented x3 HEENT: Atraumatic Neck: Supple Cardiovascular: Regular rate Abdomen: Bowel sounds, Soft, no Tender, no Hepatomegaly, no Splenomegaly, no Distended, no Rebound, no Mass, no Guarding Psych/Mental Status: Mental status NL - Procedures Procedures: Procedures Procedure Code Date APPLICATION OF SPLINT 93.54 12/21/10 APPLY LONG ARM SPLINT 20191 12/21/10 DIPHTHERIA TOXOID ADMIN 99.36 12/21/10 EMERGENCY DEPT VISIT 64762 07/22/11 IMMUNIZATION ADMIN 02950 12/21/10 LAP COLECTOMY PART W/ILEUM 70217 02/22/13 LAP VENT/ABD SOPHIE PROC COMP [id number] 02/22/13 LAPAROSCOP APPENDECTOMY 47.01 02/22/13 LAPAROSCOPIC CECECTOMY 17.32 02/22/13 LAPAROSCOPY APPENDECTOMY 03539 02/22/13 OTHER LAPAROSCOPIC UMBILICAL HERNIORRHAPHY 53.43 02/22/13 TD VACCINE > 7 IM 40895 12/21/10 TETANUS TOXOID ADMINIST 99.38 12/21/10 Assessment/Plan - Problem List Patient Problems: All Active Problems NAUSEA AND VOMITING WITH ABDOMINAL PAIN (Acute) - Assessment Assessment: # Abd pain # Nausea/vomiting # Acute pancreatitis # Hx of abd surgeries Pt met criteria for acute pancreatitis on admission given elevated lipase, epigastric pain, and CT findings. Now much improved with conservative therapy with IV fluids. Etiology unclear CT showed possible cholecystitis, but US shows no stones Plan: - advance diet to full liquids - f/u HIDA - cont supportive care - appreciate surgical recs
[2018-02-21 07:55] LABS: BAND NEUTROPHILE 1 % (0-10); BASOPHIL 0 % (0-3); EOSINOPHIL 10 % (0-5); LYMPHOCYTE 45 % (20-50); MONOCYTE 9 % (2-10); NEUTROPHILS 35 % (40-80)
--- NOTE | 2018-02-21 09:44 | General Progress Note ---
Subjective - Review of Systems Service Date: 02/21/18 Events since last encounter: LFT, lipase, lipid panel ok denies pain await HIDA Objective - Results Result Diagrams: 02/21/18 05:10 02/21/18 05:10 Recent Labs: Laboratory Last Values WBC 5.7 Th/cmm (4.8-10.8) D 02/21/18 05:10 RBC 3.78 Mil/cmm (3.80-5.20) L 02/21/18 05:10 Hgb 11.0 gm/dL (12-16) L 02/21/18 05:10 Hct 33.5 % (41.0-60) L 02/21/18 05:10 MCV 88.7 fl (81-100) 02/21/18 05:10 MCH 29.2 pg (27.0-31.0) 02/21/18 05:10 MCHC Differential 32.9 pg (28.0-36.0) 02/21/18 05:10 RDW 16.6 % (11.5-20.0) 02/21/18 05:10 Plt Count 161 Th/cmm (150-400) 02/21/18 05:10 MPV 8.3 fl 02/21/18 05:10 Add Manual Diff YES 02/21/18 05:10 Neutrophils % 59.6 % (40.0-80.0) 02/20/18 05:10 Band Neutrophils % 1 % (0-10) 02/21/18 05:10 Lymphocytes % 27.0 % (20.0-50.0) 02/20/18 05:10 Monocytes % 9.0 % (2.0-10.0) 02/20/18 05:10 Eosinophils % 3.9 % (0.0-5.0) 02/20/18 05:10 Basophils % 0.5 % (0.0-2.0) 02/20/18 05:10 Neutrophils (Manual) 35 % (40-80) L 02/21/18 05:10 Lymphocytes 45 % (20-50) 02/21/18 05:10 Monocytes 9 % (2-10) 02/21/18 05:10 Eosinophils 10 % (0-5) H 02/21/18 05:10 Basophils 0 % (0-3) 02/21/18 05:10 PT 13.6 SECONDS (9.5-11.5) H 02/20/18 05:10 INR 1.33 (0.5-1.4) 02/20/18 05:10 Sodium 139 mEq/L (136-145) 02/21/18 05:10 Potassium 3.7 mEq/L (3.5-5.1) 02/21/18 05:10 Chloride 108 mEq/L (98-107) H 02/21/18 05:10 Carbon Dioxide 25.2 mEq/L (21.0-31.0) 02/21/18 05:10 Anion Gap 9.5 (7.0-16.0) 02/21/18 05:10 BUN 11 mg/dL (7-25) 02/21/18 05:10 Creatinine 0.9 mg/dL (0.6-1.2) 02/21/18 05:10 Est GFR ( Amer) TNP 02/21/18 05:10 Est GFR (Non-Af Amer) TNP 02/21/18 05:10 BUN/Creatinine Ratio 12.2 02/21/18 05:10 Glucose 101 mg/dL (70-105) 02/21/18 05:10 Calcium 8.9 mg/dL (8.6-10.3) 02/21/18 05:10 Magnesium 2.2 mg/dL (1.9-2.7) 02/21/18 05:10 Total Bilirubin 0.8 mg/dL (0.3-1.0) 02/21/18 05:10 AST 27 U/L (13-39) 02/21/18 05:10 ALT 10 U/L (7-52) 02/21/18 05:10 Alkaline Phosphatase 86 U/L (34-104) 02/21/18 05:10 Total Protein 8.1 gm/dL (6.0-8.3) 02/21/18 05:10 Albumin 2.9 gm/dL (3.7-5.3) L 02/21/18 05:10 Globulin 5.2 gm/dL 02/21/18 05:10 Albumin/Globulin Ratio 0.6 (1.0-1.8) L 02/21/18 05:10 Triglycerides 71 mg/dL (<150) 02/20/18 12:44 Cholesterol 113 mg/dL (<200) 02/20/18 12:44 LDL Cholesterol Direct 67 mg/dL (75-193) L 02/20/18 12:44 HDL Cholesterol 35 mg/dL (23-92) 02/20/18 12:44 Amylase 675 U/L (29-103) H 02/19/18 16:41 Lipase 60 U/L (11-82) 02/20/18 12:44 Urine Source CLEAN C 02/19/18 16:08 Urine Color YELLOW 02/19/18 16:08 Urine Clarity CLEAR (CLEAR) 02/19/18 16:08 Urine pH 6.5 (4.6 - 8.0) 02/19/18 16:08 Ur Specific [place] 1.020 (1.005-1.030) 02/19/18 16:08 Urine Protein 100 mg/dL (NEGATIVE) H 02/19/18 16:08 Urine Glucose (UA) NEGATIVE mg/dL (NEGATIVE) 02/19/18 16:08 Urine Ketones NEGATIVE mg/dL (NEGATIVE) 02/19/18 16:08 Urine Blood SMALL (NEGATIVE) H 02/19/18 16:08 Urine Nitrate NEGATIVE (NEGATIVE) 02/19/18 16:08 Urine Bilirubin NEGATIVE (NEGATIVE) 02/19/18 16:08 Urine Urobilinogen 0.2 E.U./dL (0.2 - 1.0) 02/19/18 16:08 Ur Leukocyte Esterase NEGATIVE (NEGATIVE) 02/19/18 16:08 Urine RBC 2-5 /hpf (0-5) 02/19/18 16:08 Urine WBC 0-2 /hpf (0-5) 02/19/18 16:08 Ur Epithelial Cells FEW /lpf (FEW) 02/19/18 16:08 Urine Bacteria 1+ /hpf (NONE SEEN) H 02/19/18 16:08 - Physical Exam Vitals and I&O: Vital Signs Temp 97.4 F 02/21/18 08:22 Pulse 69 02/21/18 08:37 Resp 18 02/21/18 08:22 BP 132/56 02/21/18 08:37 Pulse Ox 91 02/21/18 08:22 Intake & Output 02/20/18 02/21/18 02/21/18 18:59 06:59 18:59 Intake Total 350 1225 Balance 350 1225 Weight (lbs) 70.76 kg 70.76 kg Intake: Intake, IV Amount 150 1150 D5-0.45NS 1,000 ml @ 125 1000 mls/hr IV .Q8H [facility] Rx#: [id number] Piperacillin Sodium/ 50 50 Tazobact 3.375 gm In Sodium Chloride 0.9% 50 ml @ 100 mls/hr IV Q8HR [facility] Rx#:[id number] metroNIDAZOLE 500mg/NS 100 100 100mL 500 mg In 100 ml @ 100 mls/hr IV Q8HR [facility] Rx #:[id number] Oral 200 75 Other: # Voids 5 # Bowel Movements 1 Weight Source Bedscale Bedscale Active Medications: Current Medications Albuterol Sulfate (Albuterol 2.5mg/3ml Neb Ud) 2.5 mg HHN Q6H PRN PRN Reason: Shortness of Breath Stop: 04/21/18 23:11 Hydralazine HCl (Apresoline 20 Mg/Ml) 20 mg IV Q4HR PRN PRN Reason: IN SBP >160 Stop: 04/20/18 22:17 Last Admin: 02/19/18 23:42 Dose: 20 mg Piperacillin Sod/Tazobactam (Sod 3.375 gm/ Sodium Chloride) 50 mls @ 100 mls/ hr IV Q8HR [facility] Stop: 04/21/18 04:59 Last Admin: 02/21/18 04:58 Dose: 100 mls/hr Dextrose/Sodium Chloride (D5-0.45ns) 1,000 mls @ 125 mls/hr IV .Q8H [facility] Stop: 04/21/18 08:56 Last Admin: 02/21/18 01:16 Dose: 125 mls/hr Metronidazole (Flagyl) 500 mg in 100 mls @ 100 mls/hr IV Q8HR [facility] Stop: 04/21/18 12:59 Last Admin: 02/21/18 05:04 Dose: 100 mls/hr Levothyroxine Sodium (Synthroid) 0.05 mg PO QDAC [facility] Stop: 04/22/18 07:29 Last Admin: 02/21/18 06:38 Dose: 0.05 mg Metoprolol Tartrate (Lopressor) 50 mg PO BID [facility] Stop: 04/22/18 08:59 Last Admin: 02/21/18 08:37 Dose: 50 mg Miscellaneous (Pharmacy To Dose) 1 ea MC PRN [facility] Stop: 04/21/18 23:29 Morphine Sulfate (Morphine) 1 mg IV NOW PRN PRN Reason: Pain (Moderate) Stop: 04/20/18 22:13 Ondansetron HCl (Zofran) 4 mg IV Q4HR PRN PRN Reason: Nausea / Vomiting Stop: 04/20/18 22:11 Pantoprazole Sodium (Protonix) 40 mg IVP DAILY [facility] Stop: 04/21/18 08:59 Last Admin: 02/21/18 08:33 Dose: 40 mg Rivaroxaban (Xarelto) 15 mg PO DAILY@1700 [facility] Stop: 04/22/18 01:29 Last Admin: 02/21/18 01:09 Dose: 15 mg General: Alert, Oriented x3 HEENT: Atraumatic Neck: Supple Cardiovascular: Regular rate Abdomen: Bowel sounds, Soft, no Tender, no Hepatomegaly, no Splenomegaly, no Distended, no Rebound, no Mass, no Guarding Psych/Mental Status: Mental status NL - Procedures Procedures: Procedures Procedure Code Date APPLICATION OF SPLINT 93.54 12/21/10 APPLY LONG ARM SPLINT 13364 12/21/10 DIPHTHERIA TOXOID ADMIN 99.36 12/21/10 EMERGENCY DEPT VISIT 05094 07/22/11 IMMUNIZATION ADMIN 08665 12/21/10 LAP COLECTOMY PART W/ILEUM 11311 02/22/13 LAP VENT/ABD SOPHIE PROC COMP 05443 02/22/13 LAPAROSCOP APPENDECTOMY 47.01 02/22/13 LAPAROSCOPIC CECECTOMY 17.32 02/22/13 LAPAROSCOPY APPENDECTOMY 14779 02/22/13 OTHER LAPAROSCOPIC UMBILICAL HERNIORRHAPHY 53.43 02/22/13 TD VACCINE > 7 IM 83269 12/21/10 TETANUS TOXOID ADMINIST 99.38 12/21/10 Assessment/Plan - Problem List Patient Problems: All Active Problems NAUSEA AND VOMITING WITH ABDOMINAL PAIN (Acute)
[2018-02-21] MEDS ORDERED: Probiotic Screen MC PRN (12:23)
--- NOTE | 2018-02-21 12:46 | Diagnostic Imaging Report ---
Exam: HIDA scan HISTORY cholecystitis. Findings: Utilizing 5.0 mCi of technetium 99 M Choletec examination liver and biliary tree was performed The study demonstrates a decrease uptake of the radiopharmaceutical throughout the liver parenchyma. The common bile duct and excretion small bowel visualized. The gallbladder is not seen. IMPRESSION: 1. Poor uptake of the radial mesenteric of liver parenchyma. Hepatocellular disease question. Nonvisualization of gallbladder, obstruction of cystic duct. Cholecystitis cannot be excluded.
[2018-02-21] MEDS: Lactobacillus Rhamnosus GG 15 Billion CFU CAP.SPRINK PO SCH (13:39)
[2018-02-22 06:29] LABS: HEMATOCRIT 34.4 % (41.0-60); HEMOGLOBIN 11.6 gm/dL (12-16); MEAN CELL VOLUME 86.9 fl (81-100); MEAN CORPUSCULAR HEMOGLOBIN 29.2 pg (27.0-31.0); MEAN CORPUSCULAR HGB CONC 33.6 pg (28.0-36.0); MEAN PLATELET VOLUME 8.5 fl; PLATELET COUNT 174 Th/cmm (150-400); RED BLOOD COUNT 3.96 Mil/cmm (3.80-5.20); RED CELL DISTRIBUTION WIDTH 15.9 % (11.5-20.0); WHITE BLOOD COUNT 6.7 Th/cmm (4.8-10.8)
[2018-02-22] MEDS: metroNIDAZOLE 500mg/NS 100mL 500 MG/100 ML BAG IV SCH (06:37)
[2018-02-22] MEDS: D5-0.45NS 1,000 ML IV SCH (06:45)
[2018-02-22] MEDS: Levothyroxine 0.05 Mg Tab PO SCH (06:45)
[2018-02-22 06:54] LABS: ALB/GLOB RATIO 0.6 (1.0-1.8); ALBUMIN 2.9 gm/dL (3.7-5.3); ALKALINE PHOSPHATASE 82 U/L (34-104); BILIRUBIN,TOTAL 0.6 mg/dL (0.3-1.0); BUN - UREA NITROGEN 6 mg/dL (7-25); CALCIUM SERUM 9.2 mg/dL (8.6-10.3); CARBON DIOXIDE 22.5 mEq/L (21.0-31.0); CHLORIDE 106 mEq/L (98-107); CREATININE - SERUM 0.8 mg/dL (0.6-1.2); GLUCOSE 87 mg/dL (70-105); POTASSIUM SERUM 3.5 mEq/L (3.5-5.1); SGOT 24 U/L (13-39); SGPT/ALT 10 U/L (7-52); SODIUM SERUM 139 mEq/L (136-145); TOTAL PROTEIN,SERUM 8.1 gm/dL (6.0-8.3)
[2018-02-22 08:18] LABS: BAND NEUTROPHILE 1 % (0-10); BASOPHIL 0 % (0-3); EOSINOPHIL 10 % (0-5); LYMPHOCYTE 43 % (20-50); MONOCYTE 7 % (2-10); NEUTROPHILS 39 % (40-80)
--- NOTE | 2018-02-22 08:20 | GI Progress Note ---
Subjective - Review of Systems Service Date: 02/22/18 Subjective: Feeling better by the day, no vomiting Objective - Results Result Diagrams: 02/22/18 05:15 02/22/18 05:15 Recent Labs: Laboratory Last Values WBC 6.7 Th/cmm (4.8-10.8) 02/22/18 05:15 RBC 3.96 Mil/cmm (3.80-5.20) 02/22/18 05:15 Hgb 11.6 gm/dL (12-16) L 02/22/18 05:15 Hct 34.4 % (41.0-60) L 02/22/18 05:15 MCV 86.9 fl (81-100) 02/22/18 05:15 MCH 29.2 pg (27.0-31.0) 02/22/18 05:15 MCHC Differential 33.6 pg (28.0-36.0) 02/22/18 05:15 RDW 15.9 % (11.5-20.0) 02/22/18 05:15 Plt Count 174 Th/cmm (150-400) 02/22/18 05:15 MPV 8.5 fl 02/22/18 05:15 Add Manual Diff YES 02/22/18 05:15 Neutrophils % 59.6 % (40.0-80.0) 02/20/18 05:10 Band Neutrophils % 1 % (0-10) 02/21/18 05:10 Lymphocytes % 27.0 % (20.0-50.0) 02/20/18 05:10 Monocytes % 9.0 % (2.0-10.0) 02/20/18 05:10 Eosinophils % 3.9 % (0.0-5.0) 02/20/18 05:10 Basophils % 0.5 % (0.0-2.0) 02/20/18 05:10 Neutrophils (Manual) 35 % (40-80) L 02/21/18 05:10 Lymphocytes 45 % (20-50) 02/21/18 05:10 Monocytes 9 % (2-10) 02/21/18 05:10 Eosinophils 10 % (0-5) H 02/21/18 05:10 Basophils 0 % (0-3) 02/21/18 05:10 PT 13.6 SECONDS (9.5-11.5) H 02/20/18 05:10 INR 1.33 (0.5-1.4) 02/20/18 05:10 Sodium 139 mEq/L (136-145) 02/22/18 05:15 Potassium 3.5 mEq/L (3.5-5.1) 02/22/18 05:15 Chloride 106 mEq/L (98-107) 02/22/18 05:15 Carbon Dioxide 22.5 mEq/L (21.0-31.0) 02/22/18 05:15 Anion Gap 14.0 (7.0-16.0) 02/22/18 05:15 BUN 6 mg/dL (7-25) L 02/22/18 05:15 Creatinine 0.8 mg/dL (0.6-1.2) 02/22/18 05:15 Est GFR ( Amer) TNP 02/22/18 05:15 Est GFR (Non-Af Amer) TNP 02/22/18 05:15 BUN/Creatinine Ratio 7.5 02/22/18 05:15 Glucose 87 mg/dL (70-105) 02/22/18 05:15 Calcium 9.2 mg/dL (8.6-10.3) 02/22/18 05:15 Magnesium 2.0 mg/dL (1.9-2.7) 02/22/18 05:15 Total Bilirubin 0.6 mg/dL (0.3-1.0) 02/22/18 05:15 AST 24 U/L (13-39) 02/22/18 05:15 ALT 10 U/L (7-52) 02/22/18 05:15 Alkaline Phosphatase 82 U/L (34-104) 02/22/18 05:15 Total Protein 8.1 gm/dL (6.0-8.3) 02/22/18 05:15 Albumin 2.9 gm/dL (3.7-5.3) L 02/22/18 05:15 Globulin 5.2 gm/dL 02/22/18 05:15 Albumin/Globulin Ratio 0.6 (1.0-1.8) L 02/22/18 05:15 Triglycerides 71 mg/dL (<150) 02/20/18 12:44 Cholesterol 113 mg/dL (<200) 02/20/18 12:44 LDL Cholesterol Direct 67 mg/dL (75-193) L 02/20/18 12:44 HDL Cholesterol 35 mg/dL (23-92) 02/20/18 12:44 Amylase 675 U/L (29-103) H 02/19/18 16:41 Lipase 60 U/L (11-82) 02/20/18 12:44 Urine Source CLEAN C 02/19/18 16:08 Urine Color YELLOW 02/19/18 16:08 Urine Clarity CLEAR (CLEAR) 02/19/18 16:08 Urine pH 6.5 (4.6 - 8.0) 02/19/18 16:08 Ur Specific [place] 1.020 (1.005-1.030) 02/19/18 16:08 Urine Protein 100 mg/dL (NEGATIVE) H 02/19/18 16:08 Urine Glucose (UA) NEGATIVE mg/dL (NEGATIVE) 02/19/18 16:08 Urine Ketones NEGATIVE mg/dL (NEGATIVE) 02/19/18 16:08 Urine Blood SMALL (NEGATIVE) H 02/19/18 16:08 Urine Nitrate NEGATIVE (NEGATIVE) 02/19/18 16:08 Urine Bilirubin NEGATIVE (NEGATIVE) 02/19/18 16:08 Urine Urobilinogen 0.2 E.U./dL (0.2 - 1.0) 02/19/18 16:08 Ur Leukocyte Esterase NEGATIVE (NEGATIVE) 02/19/18 16:08 Urine RBC 2-5 /hpf (0-5) 02/19/18 16:08 Urine WBC 0-2 /hpf (0-5) 02/19/18 16:08 Ur Epithelial Cells FEW /lpf (FEW) 02/19/18 16:08 Urine Bacteria 1+ /hpf (NONE SEEN) H 02/19/18 16:08 - Physical Exam Vitals and I&O: Vital Signs Temp 96.8 F 02/22/18 07:38 Pulse 66 02/22/18 07:38 Resp 18 02/22/18 07:38 BP 144/56 02/22/18 07:38 Pulse Ox 99 02/22/18 07:38 Intake & Output 02/21/18 02/22/18 02/22/18 18:59 06:59 18:59 Intake Total 1150 1150 Balance 1150 1150 Intake: Intake, IV Amount 1150 1150 D5-0.45NS 1,000 ml @ 125 1000 1000 mls/hr IV .Q8H [facility] Rx#: [id number] Piperacillin Sodium/ 50 50 Tazobact 3.375 gm In Sodium Chloride 0.9% 50 ml @ 100 mls/hr IV Q8HR [facility] Rx#:[id number] metroNIDAZOLE 500mg/NS 100 100 100mL 500 mg In 100 ml @ 100 mls/hr IV Q8HR [facility] Rx #:[id number] Active Medications: Current Medications Albuterol Sulfate (Albuterol 2.5mg/3ml Neb Ud) 2.5 mg HHN Q6H PRN PRN Reason: Shortness of Breath Stop: 04/21/18 23:11 Hydralazine HCl (Apresoline 20 Mg/Ml) 20 mg IV Q4HR PRN PRN Reason: IN SBP >160 Stop: 04/20/18 22:17 Last Admin: 02/19/18 23:42 Dose: 20 mg Piperacillin Sod/Tazobactam (Sod 3.375 gm/ Sodium Chloride) 50 mls @ 100 mls/ hr IV Q8HR [facility] Stop: 04/21/18 04:59 Last Admin: 02/22/18 06:37 Dose: 100 mls/hr Dextrose/Sodium Chloride (D5-0.45ns) 1,000 mls @ 125 mls/hr IV .Q8H [facility] Stop: 04/21/18 08:56 Last Admin: 02/22/18 06:45 Dose: 125 mls/hr Metronidazole (Flagyl) 500 mg in 100 mls @ 100 mls/hr IV Q8HR [facility] Stop: 04/21/18 12:59 Last Admin: 02/22/18 06:37 Dose: 100 mls/hr Lactobacillus Rhamnosus (Culturelle 15b) 1 each PO DAILY [facility] Stop: 04/22/18 13:59 Last Admin: 02/21/18 13:39 Dose: 1 each Levothyroxine Sodium (Synthroid) 0.05 mg PO QDAC [facility] Stop: 04/22/18 07:29 Last Admin: 02/22/18 06:45 Dose: 0.05 mg Metoprolol Tartrate (Lopressor) 50 mg PO BID [facility] Stop: 04/22/18 08:59 Last Admin: 02/21/18 18:04 Dose: 50 mg Miscellaneous (Pharmacy To Dose) 1 ea MC PRN [facility] Stop: 04/21/18 23:29 Miscellaneous (Probiotic Screen) 1 ea MC PRN PRN PRN Reason: PROTOCOL Stop: 04/22/18 12:22 Morphine Sulfate (Morphine) 1 mg IV NOW PRN PRN Reason: Pain (Moderate) Stop: 04/20/18 22:13 Last Admin: 02/21/18 20:38 Dose: 1 mg Ondansetron HCl (Zofran) 4 mg IV Q4HR PRN PRN Reason: Nausea / Vomiting Stop: 04/20/18 22:11 Pantoprazole Sodium (Protonix) 40 mg IVP DAILY [facility] Stop: 04/21/18 08:59 Last Admin: 02/21/18 08:33 Dose: 40 mg Rivaroxaban (Xarelto) 15 mg PO DAILY@1700 [facility] Stop: 04/22/18 01:29 Last Admin: 02/21/18 18:04 Dose: 15 mg General: Alert, Oriented x3 HEENT: Atraumatic Neck: Supple Cardiovascular: Regular rate Abdomen: Bowel sounds, Soft, no Tender, no Hepatomegaly, no Splenomegaly, no Distended, no Rebound, no Mass, no Guarding Psych/Mental Status: Mental status NL - Procedures Procedures: Procedures Procedure Code Date APPLICATION OF SPLINT 93.54 12/21/10 APPLY LONG ARM SPLINT 38391 12/21/10 DIPHTHERIA TOXOID ADMIN 99.36 12/21/10 EMERGENCY DEPT VISIT 13797 07/22/11 IMMUNIZATION ADMIN 81456 12/21/10 LAP COLECTOMY PART W/ILEUM 43831 02/22/13 LAP VENT/ABD SOPHIE PROC COMP 28987 02/22/13 LAPAROSCOP APPENDECTOMY 47.01 02/22/13 LAPAROSCOPIC CECECTOMY 17.32 02/22/13 LAPAROSCOPY APPENDECTOMY 00059 02/22/13 OTHER LAPAROSCOPIC UMBILICAL HERNIORRHAPHY 53.43 02/22/13 TD VACCINE > 7 IM 79082 12/21/10 TETANUS TOXOID ADMINIST 99.38 12/21/10 Assessment/Plan - Problem List Patient Problems: All Active Problems NAUSEA AND VOMITING WITH ABDOMINAL PAIN (Acute) - Assessment Assessment: # Abd pain # Nausea/vomiting # Acute pancreatitis # Hx of abd surgeries Pt met criteria for acute pancreatitis on admission given elevated lipase, epigastric pain, and CT findings. Now much improved with conservative therapy with IV fluids. Etiology unclear CT showed possible cholecystitis, but US shows no stones Given nl LFTs, I do not think MRCP will be of much use. HIDA shows possible cystic duct obstruction. Given CT also showed cholecystitis, may cholecystectmy should be considered if she is a surgical candidate to prevent recurrence. Plan: - advance diet as tolerated - MRCP is not necessary - may benefit from cholecystectomy, see above discussion - cont supportive care - appreciate surgical recs
[2018-02-22] MEDS: Lactobacillus Rhamnosus GG 15 Billion CFU CAP.SPRINK PO SCH (09:45)
--- NOTE | 2018-02-23 02:26 | Discharge Summary ---
DATE OF DISCHARGE: 02/22/2018 ADMITTING DIAGNOSES: 1. Abdominal pain. 2. Acute pancreatitis. 3. Likely cholecystitis with no clear evidence of gallstones. 4. Recent urinary tract infection. SECONDARY DIAGNOSES: 1. History of atrial fibrillation. 2. Essential hypertension. 3. History of asthma/chronic obstructive pulmonary disease. 4. Hypothyroidism. DISCHARGE DIAGNOSES: 1. Acute pancreatitis, resolved. 2. Cholecystitis, resolved. 3. Mild anemia. 4. Abdominal pain-resolved. CONSULTANTS: Gastroenterology, Dr. Shipley; Cardiology, Dr. Fernandez and Surgery, Dr. Flower. MAJOR PROCEDURES: Abdominal and pelvic CT done on 02/19/2018 showing hepatosplenomegaly. Gallbladder distention with thickening wall, but no clear evidence of gallstones. Inhomogeneous edema around the pancreas. There was a gallbladder ultrasound on 02/19/2018 showing distended gallbladder with no evidence of cholelithiasis. On 02/20/2018, there was a HIDA scan showing nonvisualization of gallbladder with possible obstruction of cystic duct. There was poor uptake of the radial mesenteric of liver parenchyma. BRIEF HOSPITAL COURSE: A 77-year-old lady with history of atrial fib, hyperlipidemia and hypertension, who presented to the ER with a 1-day history of abdominal pain and multiple episodes of nausea and vomiting. She denied hematemesis, diarrhea, constipation or fever or chills. She also denied any similar previous episodes in the past. The pertinent findings on admission included a lipase level of over [address] of the abdomen with the above-mentioned findings. She was admitted to the tele sky given her atrial fib and placed on IV fluids, empiric IV antibiotics as well as Protonix IV. She was initially seen by GI and Surgery and then a Cardiology consult was asked for given her history of atrial fib. The patient's condition improved and by hospital day #1: she had less abdominal pain and no further nausea or vomiting. Her lipase level was noted to be 171 by 02/20/2018. The patient's diet was also advanced and she was able to tolerate a soft bland diet by 02/21/2018. MEDICATIONS ON DISCHARGE: Albuterol MDI 90 mcg inhalation q. 4 hours p.r.n. for SOB, amlodipine 5 q. daily, Eliquis 5 q. daily, vitamin D2 50,000 units q. weekly, Synthroid 50 mcg q. daily, loratadine 10 mg q. daily and metoprolol 50 mg b.i.d. CONDITION ON DISCHARGE: Stable. DISPOSITION: The patient was instructed to follow up with her primary care doctor within 2-3 days. I also instructed her to maintain a soft/bland diet for the next 1-2 weeks. [facility]# [id number] MTDD
== END 2018-02-22 11:44 | disposition home or self-care (01) | DRG 439 ==
LOC: ER 15:33 → MSI 22:05
PROVIDERS: ADMIT Internal Medicine; ATTEND Internal Medicine
DX: K85.90 Acute pancreatitis without necrosis or infection, unspecified (principal); E44.1 Mild protein-calorie malnutrition; K81.9 Cholecystitis, unspecified; J44.9 Chronic obstructive pulmonary disease, unspecified; K74.60 Unspecified cirrhosis of liver; I48.91 Unspecified atrial fibrillation; E87.6 Hypokalemia; K82.8 Other specified diseases of gallbladder; K57.30 Diverticulosis of large intestine without perforation or abscess without bleeding; I11.0 Hypertensive heart disease with heart failure; I50.9 Heart failure, unspecified; E66.9 Obesity, unspecified; E78.5 Hyperlipidemia, unspecified; R16.0 Hepatomegaly, not elsewhere classified; D64.9 Anemia, unspecified; Z90.49 Acquired absence of other specified parts of digestive tract; Z79.01 Long term (current) use of anticoagulants; Z68.32 Body mass index [BMI] 32.0-32.9, adult
CPT/HCPCS: 36415-UA; 71045-TC; 74000-TC; 76705-TC; 78226-TC; 80053-TC; 80061-TC; 81001-TC; 82150-TC; 83690-TC; 83735-TC; 85007-TC; 85025-TC; 85610-TC; 87086-90; 90799; 93005; 94760; 96375; A9537; C9113; J0360; J2270; J2543; Z7610